=== PATIENT | male | born 1985 | race Caucasian/White ===

== ENCOUNTER 2018-04-15 15:02 | Emergency (ER) | payer OTHER ==
[2018-04-15 16:02] VITALS: BP 148/81
--- NOTE | 2018-04-15 18:09 | ED ---
Upper Extremity Pain - HPI Summary HPI Summary: pt presents for evaluation of left wrist pain. pt states that he has not had any new trauma, however, he is having increased pain and decreased rom. he states that he is in a lot of pain when he lifts up his babies. he states that he is not currently working. he is right hand dominant. - History of Current Complaint Chief Complaint: UCUpperExtremity Stated Complaint: LEFT WRIST COMPLAINT Time Seen by Provider: 04/15/18 16:56 Hx Obtained From: Patient Mechanism Of Injury: Unknown Onset/Duration: Started Days Ago Timing: Constant Severity Initially: Mild Severity Currently: Mild Pain Location: Wrist - left Aggravating Factor(s): Movement Alleviating Factor(s): Rest Associated Signs & Symptoms: Positive: Weakness - left wrist secondary to pain.. Negative: Swelling, Redness, Bruising, Nausea, Vomiting - Allergies/Home Medications Allergies/Adverse Reactions: Allergies Allergy/AdvReac Type Severity Reaction Status Date / Time No Known Allergies Allergy Verified 04/15/18 16:02 Home Medications: Home Medications Ibuprofen TAB* [Motrin TAB* 400 MG] 800 mg PO Q6H PRN 04/15/18 [History Confirmed 04/15/18] PMH/Surg Hx/FS Hx/Imm Hx Previously Healthy: Yes Endocrine/Hematology History: Denies: Hx Diabetes Cardiovascular History: Denies: Hx Hypertension, Hx Pacemaker/ICD Sensory History: Denies: Hx Hearing Aid Psychiatric History: Denies: Hx Panic Disorder - Surgical History Surgery Procedure, Year, and Place: hernia b/l inguinal as child, LEFT KNEE SX-- 2014 Infectious Disease History: No Infectious Disease History: Reports: Hx Shingles Denies: Traveled Outside the [place] in Last 30 Days - Social History Alcohol Use: Daily Alcohol Amount: 12 beers Substance Use Type: Reports: Marijuana Substance Use Comment - Amount & Last Used: occ usage Smoking Status (MU): Heavy Every Day Tobacco Smoker Type: Cigarettes Amount Used/How Often: 1/2 ppd Length of Time of Smoking/Using Tobacco: since age 13 Have You Smoked in the Last Year: Yes Review of Systems Constitutional: Negative Eyes: Negative ENT: Negative Cardiovascular: Negative Respiratory: Negative Gastrointestinal: Negative Genitourinary: Negative Positive: Arthralgia, Decreased ROM - left wrist. Negative: Edema Skin: Negative Positive: Weakness - left wrist secondary to pain. Negative: Headache, Paresthesia, Numbness, Syncope, Slurred Speech Psychological: Normal All Other Systems Reviewed And Are Negative: No Physical Exam Triage Information Reviewed: Yes Vital Signs On Initial Exam: Initial Vitals Temp Pulse Resp BP Pulse Ox 98.1 F 69 14 148/81 99 04/15/18 15:55 04/15/18 15:55 04/15/18 15:55 04/15/18 15:55 04/15/18 15:55 Vital Signs Reviewed: Yes Appearance: Positive: Well-Appearing, No Pain Distress, Well-Nourished Skin: Positive: Warm, Dry Head/Face: Positive: Normal Head/Face Inspection Eyes: Positive: Normal, EOMI ENT: Positive: Normal ENT inspection, Hearing grossly normal, Pharynx normal Neck: Positive: Supple Respiratory/Lung Sounds: Positive: Clear to Auscultation, Breath Sounds Present Cardiovascular: Positive: Normal, RRR Abdomen Description: Positive: Nontender, Soft Bowel Sounds: Positive: Present Musculoskeletal: Positive: Normal, Limited @ - left wrist decreased rom flexion and extension. no swelling or redness or deformities. Neurological: Positive: Normal, Alert, Oriented to Person Place, Time, CN Intact II-III Psychiatric: Positive: Normal AVPU Assessment: Alert Diagnostics - Vital Signs Vital Signs Temp Pulse Resp BP Pulse Ox 04/15/18 15:55 98.1 F 69 14 148/81 99 - Laboratory Lab Statement: Any lab studies that have been ordered have been reviewed, and results considered in the medical decision making process. Course/Dx - Course Course Of Treatment: xray shows no obvious fractures. I applied a removeable velcro splint. pt has an orthopedic surgeon. I encouraged pt to f/u with pcp and his orthopedic surgeon. pt also encouraged to take tylenol and motrin for pain. - Diagnoses Provider Diagnoses: Left wrist sprain Discharge - Sign-Out/Discharge Documenting (check all that apply): Patient Departure All imaging exams completed and their final reports reviewed: Yes - Discharge Plan Condition: Stable Disposition: HOME Patient Education Materials: Wrist Sprain (ED) Referrals: No Primary Care Phys,NOPCP [Primary Care Provider] - [facility] [Provider Group] Additional Instructions: wear the wrist splint for comfort. take tylenol and motrin for pain. return if worse or any new symptoms. I have given you a referral to a primary care physician if you do not have one. Follow up with your orthopedic surgeon that you have an established relationship with. - Billing Disposition and Condition Condition: STABLE Disposition: Home
== END 2018-04-15 18:27 | disposition home or self-care (01) ==
LOC: UCCORT 15:02
DX: S63.502A Unspecified sprain of left wrist, initial encounter (principal); X58.XXXA Exposure to other specified factors, initial encounter; Y92.9 Unspecified place or not applicable; F17.210 Nicotine dependence, cigarettes, uncomplicated
CPT/HCPCS: 99212; G0463